=== PATIENT | male | born 1945 | race Caucasian/White ===

== ENCOUNTER 2022-06-17 14:55 | Emergency (ER) | payer OTHER, MEDICARE ==
[2022-06-17 15:18] VITALS: TEMP 100
--- NOTE | 2022-06-17 15:50 | ED ---
General Adult HPI - General Source: patient Mode of arrival: ambulatory Limitations: no limitations <Barb Arreguin - Last Filed: 06/17/22 15:49> <Gurdeep Fernandez - Last Filed: 06/17/22 21:02> - General Chief complaint: Chest Pain Stated complaint: SOB/left arm pain Time Seen by Provider: 06/17/22 15:49 - History of Present Illness Initial comments: patient is a 76-year-old male presenting with chief complaint of shortness of breath. Symptoms have been ongoing for the last 3-4 days. Patient admits to cough and increasing shortness of breath on exertion. Admits to pleuritic chest pain. (Barb Arreguin) - Related Data Previous Rx's Medication Instructions Recorded Azithromycin [Zithromax] 0 mg PO DIRECTED #6 tab 06/17/22 predniSONE 60 mg PO DAILY #30 tab 06/17/22 Allergies Allergy/AdvReac Type Severity Reaction Status Date / Time No Known Allergies Allergy Verified 06/17/22 15:17 Review of Systems ROS Other: All systems not noted in ROS Statement are negative. <Barb Arreguin - Last Filed: 06/17/22 15:49> ROS Other: All systems not noted in ROS Statement are negative. <Gurdeep Fernandez - Last Filed: 06/17/22 21:02> ROS Statement: Those systems with pertinent positive or pertinent negative responses have been documented in the HPI. Past Medical History Past Medical History: COPD History of Any Multi-Drug Resistant Organisms: None Reported Past Surgical History: No Surgical Hx Reported Past Psychological History: No Psychological Hx Reported Smoking Status: Current every day smoker Past Alcohol Use History: Occasional Past Drug Use History: None Reported <Barb Arreguin - Last Filed: 06/17/22 15:49> General Exam Limitations: no limitations <Barb Arreguin - Last Filed: 06/17/22 15:49> - General Exam Comments Initial Comments: Visual Physical Exam Vital signs reviewed General: Well-appearing, nontoxic, no acute distress. Head: Normocephalic, atraumatic Eyes: PERRLA, EOMI ENT: Airway patent Chest: Nonlabored breathing Skin: No visual rash, normal skin tone Neuro: Alert and oriented 3 Musculoskeletal: No gross abnormalities (Barb Arreguin) Course Vital Signs 06/17/22 06/17/22 06/17/22 15:14 18:40 19:05 Temperature 100 F H Pulse Rate 106 H 102 H 98 Respiratory 18 21 24 Rate Blood Pressure 177/88 176/106 167/99 O2 Sat by Pulse 94 L 95 95 Oximetry 06/17/22 06/17/22 06/17/22 19:48 20:03 20:08 Temperature Pulse Rate 72 97 77 Respiratory 20 Rate Blood Pressure 157/90 O2 Sat by Pulse 98 Oximetry EKG Findings - EKG Results: EKG: interpreted by ERMD, sinus rhythm (Rate 97 bpm), normal axis - Blocks, [place], Hypertrophy, ST Abn: Repolarization changes or abnormalities: ST or T wave suggestive of ischemia <Grudeep Fernnadez - Last Filed: 06/17/22 21:02> Medical Decision Making - Lab Data Result diagrams: 06/17/22 18:11 06/17/22 18:11 <Gurdeep Fernandez - Last Filed: 06/17/22 21:02> - Lab Data Lab Results 06/17/22 06/17/22 06/17/22 Range/Units 18:11 18:11 18:11 WBC 14.9 H (3.8-10.6) k/uL RBC 4.55 (4.30-5.90) m/uL Hgb 14.9 (13.0-17.5) gm/dL Hct 43.4 (39.0-53.0) % MCV 95.4 (80.0-100.0) fL MCH 32.8 (25.0-35.0) pg MCHC 34.4 (31.0-37.0) g/dL RDW 13.0 (11.5-15.5) % Plt Count 205 (150-450) k/uL MPV 7.8 Neutrophils % 83 % Lymphocytes % 9 % Monocytes % 7 % Eosinophils % 0 % Basophils % 0 % Neutrophils # 12.3 H (1.3-7.7) k/uL Lymphocytes # 1.4 (1.0-4.8) k/uL Monocytes # 1.0 (0-1.0) k/uL Eosinophils # 0.0 (0-0.7) k/uL Basophils # 0.0 (0-0.2) k/uL PT 9.3 (9.0-12.0) sec INR 0.9 (<1.2) APTT 25.9 (22.0-30.0) sec D-Dimer (<0.60) mg/L FEU Sodium 127 L (137-145) mmol/L Potassium 5.1 (3.5-5.1) mmol/L Chloride 88 L (98-107) mmol/L Carbon Dioxide 24 (22-30) mmol/L Anion Gap 15 mmol/L BUN 11 (9-20) mg/dL Creatinine 0.85 (0.66-1.25) mg/dL Est GFR (CKD-EPI)AfAm >90 (>60 ml/min/1.73 sqM) Est GFR (CKD-EPI)NonAf 85 (>60 ml/min/1.73 sqM) Glucose 102 H (74-99) mg/dL Calcium 9.5 (8.4-10.2) mg/dL Magnesium 2.1 (1.6-2.3) mg/dL Total Bilirubin 1.1 (0.2-1.3) mg/dL AST 33 (17-59) U/L ALT 26 (4-49) U/L Alkaline Phosphatase 95 (38-126) U/L Troponin I (0.000-0.034) ng/mL NT-Pro-B Natriuret Pep pg/mL Total Protein 8.0 (6.3-8.2) g/dL Albumin 4.8 (3.5-5.0) g/dL Influenza Type A (PCR) (Not Detectd) Influenza Type B (PCR) (Not Detectd) RSV (PCR) (Not Detectd) SARS-CoV-2 (PCR) (Not Detectd) 06/17/22 06/17/22 06/17/22 Range/Units 18:11 18:11 18:11 WBC (3.8-10.6) k/uL RBC (4.30-5.90) m/uL Hgb (13.0-17.5) gm/dL Hct (39.0-53.0) % MCV (80.0-100.0) fL MCH (25.0-35.0) pg MCHC (31.0-37.0) g/dL RDW (11.5-15.5) % Plt Count (150-450) k/uL MPV Neutrophils % % Lymphocytes % % Monocytes % % Eosinophils % % Basophils % % Neutrophils # (1.3-7.7) k/uL Lymphocytes # (1.0-4.8) k/uL Monocytes # (0-1.0) k/uL Eosinophils # (0-0.7) k/uL Basophils # (0-0.2) k/uL PT (9.0-12.0) sec INR (<1.2) APTT (22.0-30.0) sec D-Dimer 0.69 H (<0.60) mg/L FEU Sodium (137-145) mmol/L Potassium (3.5-5.1) mmol/L Chloride (98-107) mmol/L Carbon Dioxide (22-30) mmol/L Anion Gap mmol/L BUN (9-20) mg/dL Creatinine (0.66-1.25) mg/dL Est GFR (CKD-EPI)AfAm (>60 ml/min/1.73 sqM) Est GFR (CKD-EPI)NonAf (>60 ml/min/1.73 sqM) Glucose (74-99) mg/dL Calcium (8.4-10.2) mg/dL Magnesium (1.6-2.3) mg/dL Total Bilirubin (0.2-1.3) mg/dL AST (17-59) U/L ALT (4-49) U/L Alkaline Phosphatase (38-126) U/L Troponin I <0.012 (0.000-0.034) ng/mL NT-Pro-B Natriuret Pep 284 pg/mL Total Protein (6.3-8.2) g/dL Albumin (3.5-5.0) g/dL Influenza Type A (PCR) (Not Detectd) Influenza Type B (PCR) (Not Detectd) RSV (PCR) (Not Detectd) SARS-CoV-2 (PCR) (Not Detectd) 06/17/22 Range/Units 18:12 WBC (3.8-10.6) k/uL RBC (4.30-5.90) m/uL Hgb (13.0-17.5) gm/dL Hct (39.0-53.0) % MCV (80.0-100.0) fL MCH (25.0-35.0) pg MCHC (31.0-37.0) g/dL RDW (11.5-15.5) % Plt Count (150-450) k/uL MPV Neutrophils % % Lymphocytes % % Monocytes % % Eosinophils % % Basophils % % Neutrophils # (1.3-7.7) k/uL Lymphocytes # (1.0-4.8) k/uL Monocytes # (0-1.0) k/uL Eosinophils # (0-0.7) k/uL Basophils # (0-0.2) k/uL PT (9.0-12.0) sec INR (<1.2) APTT (22.0-30.0) sec D-Dimer (<0.60) mg/L FEU Sodium (137-145) mmol/L Potassium (3.5-5.1) mmol/L Chloride (98-107) mmol/L Carbon Dioxide (22-30) mmol/L Anion Gap mmol/L BUN (9-20) mg/dL Creatinine (0.66-1.25) mg/dL Est GFR (CKD-EPI)AfAm (>60 ml/min/1.73 sqM) Est GFR (CKD-EPI)NonAf (>60 ml/min/1.73 sqM) Glucose (74-99) mg/dL Calcium (8.4-10.2) mg/dL Magnesium (1.6-2.3) mg/dL Total Bilirubin (0.2-1.3) mg/dL AST (17-59) U/L ALT (4-49) U/L Alkaline Phosphatase (38-126) U/L Troponin I (0.000-0.034) ng/mL NT-Pro-B Natriuret Pep pg/mL Total Protein (6.3-8.2) g/dL Albumin (3.5-5.0) g/dL Influenza Type A (PCR) Not Detected (Not Detectd) Influenza Type B (PCR) Not Detected (Not Detectd) RSV (PCR) Not Detected (Not Detectd) SARS-CoV-2 (PCR) Not Detected (Not Detectd) Disposition <Barb Arreguin - Last Filed: 06/17/22 15:49> Is patient prescribed a controlled substance at d/c from ED?: No <Gurdeep Fernandez - Last Filed: 06/17/22 21:02> Clinical Impression: COPD exacerbation, Hyponatremia Disposition: HOME SELF-CARE Condition: Fair Instructions (If sedation given, give patient instructions): Hyponatremia (ED), COPD (Chronic Obstructive Pulmonary Disease) (ED) Prescriptions: predniSONE 60 mg PO DAILY #30 tab Azithromycin [Zithromax] 0 mg PO DIRECTED #6 tab Referrals: [facility],Clinic [Primary Care Provider] - 1-2 days Mino Ruffin DO [Doctor of Osteopathic Medicine] - 1-2 days
--- NOTE | 2022-06-17 16:16 | XR ---
EXAMINATION TYPE: XR chest 2V DATE OF EXAM: 06/17/2022 4:12 PM COMPARISON: Chest radiographs from 06/24/2011 TECHNIQUE: XR chest 2V Frontal and lateral views of the chest. CLINICAL INDICATION:Male, 76 years old with history of Chest Pain; FINDINGS: Lungs/Pleura: There is flattening of the diaphragm with increased lucency of the lungs. No evidence o f pneumothorax, pleural effusion or focal consolidation. Chronic senescent parenchymal change. Pulmonary vascularity: Unremarkable. Heart/mediastinum: Cardiomediastinal silhouette is unremarkable. Atherosclerotic calcifications are seen in the aorta. Musculoskeletal: No acute osseous pathology. IMPRESSION: 1. No acute cardiopulmonary disease process. 2. COPD changes.
[2022-06-17 18:26] LABS: Basophils % (A) 0 %; Eosinophils % (A) 0 %; HCT 43.4 % (39.0-53.0); HGB 14.9 gm/dL (13.0-17.5); Lymphocytes # (A) 1.4 k/uL (1.0-4.8); Lymphocytes % (A) 9 %; MCH 32.8 pg (25.0-35.0); MCHC 34.4 g/dL (31.0-37.0); MCV 95.4 fL (80.0-100.0); Mean Platelet Volume 7.8; Monocytes % (A) 7 %; Neutrophils # (A) 12.3 k/uL (1.3-7.7); Neutrophils % (A) 83 %; Platelet Count 205 k/uL (150-450); RBC 4.55 m/uL (4.30-5.90); WBC 14.9 k/uL (3.8-10.6)
[2022-06-17 18:37] LABS: INR 0.9 (<1.2); Partial Thromboplastin Time 25.9 sec (22.0-30.0); Prothrombin Time 9.3 sec (9.0-12.0)
[2022-06-17] MEDS ORDERED: ALBUTEROL NEBULIZED 2.5 MG/3 ML INHALATION STA (18:45)
[2022-06-17] MEDS ORDERED: IPRATROPIUM-ALBUTEROL 3 ML NEB INHALATION STA (18:45)
[2022-06-17] MEDS ORDERED: predniSONE 20 MG TAB PO STA (18:46)
[2022-06-17] MEDS ORDERED: ASPIRIN 81 MG PO STA (18:48)
[2022-06-17] MEDS ORDERED: NITROGLYCERIN OINT 1 INCH/GM PACKET TOPICAL STA (18:48)
[2022-06-17 18:59] LABS: ALT 26 U/L (4-49); AST 33 U/L (17-59); African American GFR (CKD) >90 (>60 ml/min/1.73 sqM); Albumin 4.8 g/dL (3.5-5.0); Alkaline Phosphatase 95 U/L (38-126); Anion Gap 15 mmol/L; Blood Urea Nitrogen 11 mg/dL (9-20); Calcium 9.5 mg/dL (8.4-10.2); Carbon Dioxide 24 mmol/L (22-30); Chloride 88 mmol/L (98-107); Glucose 102 mg/dL (74-99); Magnesium 2.1 mg/dL (1.6-2.3); Non-African American GFR(CKD) 85 (>60 ml/min/1.73 sqM); Potassium 5.1 mmol/L (3.5-5.1); Sodium 127 mmol/L (137-145); Total Bilirubin 1.1 mg/dL (0.2-1.3)
[2022-06-17] MEDS ORDERED: AZITHROMYCIN 500 MG TAB PO STA (20:41)
[2022-06-17] MEDS ORDERED: SODIUM CHLORIDE 0.9% 500 ML 500 ML IV STA (20:41)
[2022-06-17 21:27] VITALS: BP 170/94; PULSE 98; RESP 18
== END 2022-06-17 21:27 | disposition home or self-care (01) ==
LOC: EC 14:55
DX: J44.1 Chronic obstructive pulmonary disease with (acute) exacerbation (principal); E87.1 Hypo-osmolality and hyponatremia; F17.200 Nicotine dependence, unspecified, uncomplicated; Z20.822 Contact with and (suspected) exposure to COVID-19
CPT/HCPCS: 36415; 94640; 93005; 85379; 83880; 80053; 83735; 84484; 85025; 85610; 85730; 87636; 71046; 99285; J7512